=== PATIENT | female | born 1980 | race Caucasian/White ===

== ENCOUNTER → 2017-05-04 | Outpatient (CLI) | payer BC ==
[~2017-05-04] VITALS: Ht 167.6 cm; Wt 67.0 kg
[~2017-05-04] MED LIST: PRENATAL TABLE1 EAC3 PO; PROGESTERONE200 MG PO
[2017-05-04 15:45] VITALS: BP 112/53
== END | disposition home or self-care (01) ==
LOC: IVINF 05-03 17:30
DX: Z31.82 Encounter for Rh incompatibility status (principal); Z3A.28 28 weeks gestation of pregnancy
CPT/HCPCS: 96372; J2790

== ENCOUNTER 2017-05-19 13:52 | Outpatient (CLI) | payer BC ==
[2017-05-19 14:10] VITALS: BP 107/64
[2017-05-19 17:21] VITALS: BP 107/57
[2017-05-19 18:52] VITALS: BP 114/61
== END 2017-05-19 19:11 | disposition home or self-care (01) ==
LOC: LDRP-OP 13:52 → 2WEST 13:53
DX: O47.03 False labor before 37 completed weeks of gestation, third trimester (principal); O26.873 Cervical shortening, third trimester; O34.219 Maternal care for unspecified type scar from previous cesarean delivery; O09.523 Supervision of elderly multigravida, third trimester; Z3A.31 31 weeks gestation of pregnancy
CPT/HCPCS: 59025; G0378; J0702

== ENCOUNTER 2017-05-20 13:13 | Outpatient (CLI) | payer BC ==
[2017-05-20 13:25] VITALS: BP 104/59
== END 2017-05-20 14:58 | disposition home or self-care (01) ==
LOC: LDRP-OP 13:13 → 2WEST 13:14 → LDRP-OP 08-18 21:12
DX: O26.873 Cervical shortening, third trimester (principal); Z3A.31 31 weeks gestation of pregnancy
CPT/HCPCS: 59025; G0378; J0702

== ENCOUNTER 2017-05-30 09:17 | Outpatient (CLI) | payer BC ==
[2017-05-30 09:30] VITALS: BP 111/60
[2017-05-30 17:12] LABS: CANDIDA DNA PROBE NEGATIVE; GARDNERELLA DNA PROBE NEGATIVE; INTERNAL CONTROL VALID? YES
[2017-06-01 13:33] LABS: CHLAMYDIA TRACHOMATIS NEGATIVE; NEISSERIA GONORRHOEAE NEGATIVE
[2017-06-01 13:33] LABS: CHLAMYDIA TRACHOMATIS NEGATIVE; NEISSERIA GONORRHOEAE NEGATIVE
== END 2017-05-30 14:30 | disposition home or self-care (01) ==
LOC: LDRP-OP 09:17 → 2WEST 09:18 → LDRP-OP 08-18 22:19
PROVIDERS: Obstetrics & Gynecology
DX: O60.03 Preterm labor without delivery, third trimester (principal); Z3A.33 33 weeks gestation of pregnancy
CPT/HCPCS: 59025; 87077; 87086; 87480; 87491; 87510; 87591; 87660; G0378

== ENCOUNTER 2017-06-06 12:12 | Outpatient (CLI) | payer BC ==
[~2017-06-06] VITALS: Ht 167.6 cm; Wt 69.0 kg
[2017-06-06] MEDS ORDERED: PROGESTERONE200 MG PO (12:35)
[2017-06-06 13:39] LABS: ADD MIUA? YES; BILIRUBIN NEGATIVE; BLOOD MODERATE; COLOR YELLOW ((YELLOW)); GLUCOSE (STRIP) NEGATIVE; KETONES 5; LEUKOCYTES NEGATIVE; NITRITE NEGATIVE; PROTEIN (STRIP) NEGATIVE; SPECIFIC GRAVITY 1.005 (1.000-1.030); UROBILINOGEN 0.2 MG/DL (0.2-1.0)
[2017-06-06 14:00] LABS: BACTERIA RARE /HPF; EPITHELIAL CELLS 1+ /HPF; MUCUS TRACE /LPF; WHITE BLOOD CELLS 0-5 /HPF (0-5)
== END 2017-06-06 13:19 | disposition home or self-care (01) ==
LOC: LDRP-OP 12:12 → 2WEST 12:14 → LDRP-OP 08-18 14:43
PROVIDERS: Nurse Practitioner
DX: O26.893 Other specified pregnancy related conditions, third trimester (principal); Z3A.34 34 weeks gestation of pregnancy; O34.219 Maternal care for unspecified type scar from previous cesarean delivery
CPT/HCPCS: 59025; 81003; G0378

== ENCOUNTER 2017-06-27 10:46 | Inpatient (IN) | payer BC ==
[~2017-06-27] VITALS: Ht 167.6 cm; Wt 72.7 kg
[~2017-06-27 10:46] MED LIST changes: +PROGESTERONE200 MG VG
[2017-07-06 06:39] VITALS: BP 116/68
[2017-07-06 08:13] VITALS: BP 113/66
[2017-07-06] MEDS ORDERED: PERCOCET 5/31 TABLET PO (08:36)
[2017-07-06] MEDS ORDERED: MOTRIN800 MG PO (08:36)
[2017-07-06 12:09] VITALS: BP 111/64
[2017-07-06 13:35] VITALS: BP 108/58
[2017-07-06 15:26] VITALS: BP 116/70
[2017-07-06 17:30] VITALS: BP 105/58
[2017-07-07 06:03] LABS: EOSINOPHIL (%) 0.6 % (0-5); EOSINOPHIL COUNT 0.1 K/uL (0-0.3); HEMATOCRIT 31.6 % (36.0-46.0); IMMATURE GRANULOCYTE (%) 0.5 % (0.0-0.7); IMMATURE GRANULOCYTE COUNT 0.1 K/uL; INSTRUMENT ABS NEUTROPHIL CT 8.7 K/uL; LYMPHOCYTE COUNT 1.8 K/uL (1.0-2.8); MCH 31.6 PG (29.0-34.0); MCHC 32.9 G/DL (30.0-36.0); MEAN PLAT.VOLUME 11.8 uM^3 (9.5-12.4); MONOCYTE (%) 8.1 % (3-12); MONOCYTE COUNT 0.9 K/uL (0-0.8); NEUTROPHIL (%) 74.8 % (45-76); NEUTROPHIL COUNT 8.7 K/uL (1.8-6.4); PLATELET COUNT 174 K/uL (156-360); RBC DIS.WIDTH-CV 13.1 % (11.8-14.6); RBC DIS.WIDTH-SD 46.4 % (39-53); RED BLOOD COUNT 3.29 M/uL (3.80-5.20); WHITE BLOOD COUNT 11.7 K/uL (4.1-10.2)
[2017-07-07 07:24] VITALS: BP 97/52
[2017-07-07 11:44] VITALS: BP 98/58
[2017-07-07] MEDS ORDERED: ENDOCET 5-3251 EACH PO ×2 (14:28→14:32)
[2017-07-07 14:50] VITALS: BP 102/58
== END 2017-07-07 16:30 | disposition home or self-care (01) | DRG 765 ==
LOC: 2SOUTH 10:46 → 2WEST 07-06 06:19 → 2SOUTH 07-06 09:03 → 2WEST 07-07 16:30
PROVIDERS: Obstetrics & Gynecology
PROC: 10D00Z1 Extraction of Products of Conception, Low, Open Approach (ICD-10-PCS; principal; 2017-07-06)
DX: O34.211 Maternal care for low transverse scar from previous cesarean delivery (principal); O41.03X0 Oligohydramnios, third trimester, not applicable or unspecified; O99.824 Streptococcus B carrier state complicating childbirth; Z3A.38 38 weeks gestation of pregnancy; Z37.0 Single live birth; Z80.1 Family history of malignant neoplasm of trachea, bronchus and lung; Z82.49 Family history of ischemic heart disease and other diseases of the circulatory system; Z83.3 Family history of diabetes mellitus
CPT/HCPCS: 36415; 83030; 85025; 86850; 86870; 86900; 86901; 86920; 90686; J0690; J1100; J1170; J2175; J2274; J2405; J2790; J7120

== ENCOUNTER 2018-02-09 14:39 | Emergency (ER) | payer BC ==
[~2018-02-09] VITALS: Ht 167.6 cm; Wt 61.5 kg
[~2018-02-09 14:39] MED LIST changes: +ENDOCET 5-3251 EACH PO; +MOTRIN800 MG PO; +PERCOCET 5/31 TABLET PO
[2018-02-09 15:08] LABS: HEMOGLOBIN 13.2 G/DL (11.9-15.5); MCH 32.2 PG (29.0-34.0); MCHC 34.7 G/DL (30.0-36.0); MCV 92.7 FL (83-99); RBC DIS.WIDTH-CV 12.3 % (11.8-14.6); RBC DIS.WIDTH-SD 42.3 % (39-53); WHITE BLOOD COUNT 6.7 K/uL (4.1-10.2)
[2018-02-09 15:21] LABS: CHLORIDE 98 mEq/L (99-109); POTASSIUM 3.2 mEq/L (3.7-5.4); SODIUM 129 mEq/L (136-147)
[2018-02-09 15:23] LABS: GLUCOSE 135 mg/dL (70-99)
[2018-02-09 15:27] LABS: CREATININE 0.8 mg/dL (0.6-1.3); GFR ESTIMATE (CALCULATED) > 59 mL/min/
[2018-02-09 15:28] LABS: UREA NITROGEN (BUN) 12 mg/dL (9-23)
[2018-02-09 15:34] LABS: TROP-I INTERPRETATION NEGATIVE; TROPONIN-I 0.01 ng/mL (0.0-0.30)
[2018-02-09 16:37] LABS: PLAT.SUFFICIENCY ADEQUATE; PLATELET COUNT 198 K/uL (156-360)
[2018-02-09 17:10] LABS: QUANTITATIVE HCG < 4.0 MIU/ML
[2018-02-09 20:14] VITALS: BP 106/70
== END 2018-02-09 20:52 | disposition home or self-care (01) ==
LOC: EME 14:39
DX: R00.2 Palpitations (principal); E87.6 Hypokalemia; E87.1 Hypo-osmolality and hyponatremia; J45.909 Unspecified asthma, uncomplicated; Z87.442 Personal history of urinary calculi
CPT/HCPCS: 71046; 71275; 80048; 84484; 84702; 85027; 93005; 99281; 99285; J7030